=== PATIENT | female | born 1985 | race Caucasian/White ===

== ENCOUNTER 2017-04-20 12:39 | Emergency (ER) | payer OTHER ==
[~2017-04-20] VITALS: Ht 160 cm; Wt 56.4 kg
[~2017-04-20 12:39] MED LIST: ANAPROX DS550 M1 PO; BCP; CRYSELLE1 EACH PO; NOHOMEMEDS; PROMETHAZINE HC25 M1 PO; XANAX XR0.5 MG PO; [UNRECOGNIZED DRUG - REMARK]; [UNRECOGNIZED DRUG - REMARK]; [UNRECOGNIZED DRUG - REMARK]
[2017-04-20 13:27] LABS: HEMATOCRIT 41.9 % (36.0-46.0); HEMOGLOBIN 14.5 G/DL (11.9-15.5); MCH 32.4 PG (29.0-34.0); MCHC 34.6 G/DL (30.0-36.0); MCV 93.5 FL (83-99); PLATELET COUNT 282 K/uL (156-360); RBC DIS.WIDTH-CV 12.6 % (11.8-14.6); RBC DIS.WIDTH-SD 43.5 % (39-53); RED BLOOD COUNT 4.48 M/uL (3.80-5.20); WHITE BLOOD COUNT 8.4 K/uL (4.1-10.2)
[2017-04-20 13:33] LABS: AMPHETAMINE NEGATIVE (500 ng/mL); BARBITURATES NEGATIVE (200 ng/mL); BENZODIAZEPINES NEGATIVE (150 ng/mL); BUPRENORPHINE NEGATIVE (10 ng/mL); COCAINE NEGATIVE (150 ng/mL); METHADONE NEGATIVE (200 ng/mL); METHAMPHETAMINE NEGATIVE (500 ng/mL); OPIATES (MORPHINE) NEGATIVE (100 ng/mL); OXYCODONE NEGATIVE (100 ng/mL); PHENCYCLIDINE NEGATIVE (25 ng/mL); PROPOXYPHENE NEGATIVE (300 ng/mL); THC CANNABINOIDS NEGATIVE (50 ng/mL); TRICYCLIC ANTIDEPRESSANTS NEGATIVE (300 ng/mL)
[2017-04-20 13:35] LABS: ALBUMIN 4.3 g/dL (3.2-4.8); CHLORIDE 102 mEq/L (99-109); POTASSIUM 3.6 mEq/L (3.7-5.4); SODIUM 135 mEq/L (136-147)
[2017-04-20 13:38] LABS: GLUCOSE 95 mg/dL (70-99); TOTAL PROTEIN 7.2 g/dL (6.4-8.3)
[2017-04-20 13:40] LABS: TOTAL BILIRUBIN 0.4 mg/dL (0.0-1.0)
[2017-04-20 13:41] LABS: ALKALINE PHOSPHATASE 73 IU/L (3-129); SERUM ETHYL ALCOHOL < 10 mg/dL
[2017-04-20 13:42] LABS: CREATININE 0.7 mg/dL (0.6-1.3); GFR ESTIMATE (CALCULATED) > 59 mL/min/
[2017-04-20 13:43] LABS: AST (GOT) 12 IU/L (2-34); UREA NITROGEN (BUN) 11 mg/dL (9-23)
[2017-04-20 13:44] LABS: ALT (GPT) 13 IU/L (3-49)
[2017-04-20 16:35] VITALS: BP 169/104
== END 2017-04-20 16:35 | disposition home or self-care (01) ==
LOC: EME 12:39
PROVIDERS: Emergency Medicine
DX: F32.9 Major depressive disorder, single episode, unspecified (principal); R53.83 Other fatigue; R63.5 Abnormal weight gain; Z68.22 Body mass index [BMI] 22.0-22.9, adult; I10 Essential (primary) hypertension; F17.200 Nicotine dependence, unspecified, uncomplicated
CPT/HCPCS: 80053; 85027; 90839; 99281; 99285; G0480